=== PATIENT | male | born 1995 | race Caucasian/White ===

== ENCOUNTER 2019-03-06 07:51 | Outpatient (CLI) | END 2019-03-06 08:08 | disposition short-term general hospital (02) | LOC: AMBL 07:51 | PROVIDERS: ATTEND Emergency Medicine | DX: M54.2 Cervicalgia (principal); R51 Headache; M54.6 Pain in thoracic spine; V57.5XXA Driver of pick-up truck or van injured in collision with fixed or stationary object in traffic accident, initial encounter ==